=== PATIENT | female | born 1960 | race Caucasian/White ===

== ENCOUNTER 2020-05-20 23:10 | Emergency (ER) | payer OTHER ==
--- NOTE | 2020-05-20 23:44 | RAD ---
Exam: Chest one view HISTORY:Laceration. Bleeding. Comparison: 11/26/2015 FINDINGS: Cardiac silhouette: Normal Aorta: Unremarkable Pulmonary vessels: Normal Costophrenic angles: Clear LUNGS: No masses or consolidation. Pneumothorax: None Osseous abnormalities: None IMPRESSION: No acute cardiopulmonary process.
--- NOTE | 2020-05-20 23:45 | RAD ---
Exam:2 views left humerus HISTORY: Laceration. COMPARISON: None FINDINGS: Extensive subcutaneous emphysema and bandage material. Limited evaluation for radiopaque fo reign body. No fracture. IMPRESSION: 1. Extensive soft tissue injury with overlying bandage material. Limited evaluation for foreign body. 2. No fracture.
[2020-05-20] MEDS ORDERED: Lidocaine 1% (PF) 30 ML VIAL ONE (23:54)
== END 2020-05-21 03:23 | disposition home or self-care (01) ==
LOC: ERS 23:10
DX: S51.012A Laceration without foreign body of left elbow, initial encounter (principal); S41.112A Laceration without foreign body of left upper arm, initial encounter; S51.812A Laceration without foreign body of left forearm, initial encounter; I25.2 Old myocardial infarction; E78.5 Hyperlipidemia, unspecified; J44.9 Chronic obstructive pulmonary disease, unspecified; I10 Essential (primary) hypertension; F41.9 Anxiety disorder, unspecified; F32.9 Major depressive disorder, single episode, unspecified; F17.210 Nicotine dependence, cigarettes, uncomplicated; Z86.73 Personal history of transient ischemic attack (TIA), and cerebral infarction without residual deficits; M81.0 Age-related osteoporosis without current pathological fracture; W25.XXXA Contact with sharp glass, initial encounter
CPT/HCPCS: 12007; 71045; J2001